=== PATIENT | female | born 1975 | race Two or more races ===

== ENCOUNTER → 2025-06-13 | Outpatient (CLI) | payer MEDICAID, SELFPAY ==
--- NOTE | 2025-06-13 16:59 | XR_ITS ---
Examination: Bilateral hands, 6 views. Technique: AP, Oblique, Lateral each hand total 6 views Date and time of exam: June 13, 2025, 17 0404 hours INDICATIONS: Bilateral hand pain for years. FINDINGS: Moderate extra-articular bone demineralization. No fracture or dislocation involving either hand. No erosive or other significant arthritic change involving either hand No foreign bodies Impression: No erosive or other significant arthritic change involving either hand
--- NOTE | 2025-06-13 16:59 | XR_ITS ---
EXAMINATION: Bilateral wrist 6 views TECHNIQUE: AP oblique lateral Atreus total 6 views Date and time: June 13, 2025, 1709 hours INDICATIONS: Bilateral wrist pain for years. FINDINGS: Moderate osteopenia. No fracture or dislocation involving either wrist. No erosive or other significant arthritic change involving either wrist IMPRESSION: No erosive or other significant arthritic change involving either wrist.
--- NOTE | 2025-06-13 16:59 | XR_ITS ---
Exam: elbow bilateral, 6 views Technique: Elbow AP, oblique ideomotor 6 views Exam date and time: June 13 025, 1715 hours INDICATIONS: Bilateral elbow pain months. FINDINGS: Mild bilateral elbow osteoarthritis Tiny bilateral posterior bony olecranon spurs No elbow effusions No fractures IMPRESSION: Mild bilateral elbow osteoarthritis
== END | disposition home or self-care (01) ==
PROVIDERS: PCP Nurse Practitioner Family
DX: M79.642 Pain in left hand (principal); M79.641 Pain in right hand; M25.532 Pain in left wrist; M25.531 Pain in right wrist; M19.022 Primary osteoarthritis, left elbow; M19.021 Primary osteoarthritis, right elbow
CPT/HCPCS: 73080; 73110; 73130

== ENCOUNTER 2025-08-14 11:15 | Day surgery (SDC) | payer MEDICAID, SELFPAY ==
--- NOTE | 2025-08-13 06:00 | EKG_ITS ---
[facility] Test Date: 2025-08-13 Pat Name: BREE FERRIS Department: Room: - Gender: Female [employer] Sales Manager: JONNY : 1975 Requested By: Cosmo Oates Order Number: [id number] Reading MD: Cosmo Oates Measurements Intervals [place] Rate: 61 P: 54 UT: 154 QRS: 56 QRSD: 85 T: 16 QT: 402 QTc: 407 Interpretive Statements SINUS RHYTHM No previous ECG available for comparison /[id number]/[id number]
[2025-08-13 08:19] VITALS: BMI 37.1
[2025-08-13 09:51] LABS: INR 1.0 (0.9-1.3); Partial Thromboplastin Time 27.4 Seconds (22.0-36.0); Prothrombin Time 10.2 Seconds (9.0-12.2)
[2025-08-13 09:53] LABS: Basophils # (Auto) 0.1 Thou/mm3 (0.0-0.2); Basophils % (Auto) 1 % (0-2.5); Eosinophils # (Auto) 0.1 Thou/mm3 (0.0-0.5); Eosinophils % (Auto) 1 % (0-10); Hematocrit 40.3 % (36.0-46.0); Hemoglobin 12.2 g/dL (12.0-16.0); Immature Granulocytes Auto 0.03 Thou/mm3 (0.00-0.00); Lymphocytes # (Auto) 2.5 Thou/mm3 (1.0-4.8); Lymphocytes % (Auto) 29 % (10-50); Mean Corpuscular HGB Conc 30.3 g/dl (31.0-37.0); Mean Corpuscular Hemoglobin 24.8 pg (25.0-35.0); Mean Corpuscular Volume 82 fL (80-100); Monocytes # (Auto) 0.7 Thou/mm3 (0.0-0.8); Monocytes % (Auto) 8 % (0-12); Neutrophils # (Auto) 5.4 Thou/mm3 (1.8-7.7); Neutrophils % (Auto) 62 % (37-80); Nucleated Red Blood Cell # 0.00 Thou/mm3 (0.00-0.00); Nucleated Red Blood Cell % 0 /100 WBC (0); Platelet Count 288 Thou/mm3 (140-440); RDW Standard Deviation 44.1 fL (36.4-46.3); Red Blood Count 4.92 Miln/mm3 (4.00-5.20); White Blood Count 8.7 Thou/mm3 (3.6-11.0)
[2025-08-13 10:00] LABS: Alanine Aminotransferase 11 U/L (10-49); Albumin, Serum 4.3 gm/dL (3.5-5.0); Albumin/Globulin Ratio 1.4 (1.2-2.2); Alkaline Phosphatase 101 U/L (46-116); Anion Gap 7 (7-16); Aspartate Amino Transferase < 10 U/L (0-34); BUN/Creatinine Ratio 15 Ratio (12-20); Bilirubin,Total 0.5 mg/dL (0.3-1.2); Blood Urea Nitrogen 9 mg/dL (9-23); Calcium 9.3 mg/dL (8.3-10.6); Calcium (Corrected) 9.3 mg/dL (8.5-10.1); Carbon Dioxide 30.9 mMol/L (20.0-31.0); Chloride 102 mMol/L (98-107); Creatinine (Component) 0.6 mg/dL (0.6-1.3); Estimated Creatinine Clearance 119.8 mL/min (>60); Globulin 3.0 gm/dL (2.3-3.5); Glucose 103 mg/dL (74-106); Osmolality,Calculated 278 (275-295); Potassium 4.7 mMol/L (3.4-5.1); Sodium 140 mMol/L (136-145); Total Protein 7.3 gm/dL (5.7-8.2); eGFR > 60 See Note
[2025-08-13 10:25] LABS: HCG,Qualitative Serum Negative
[2025-08-14] VITALS (11 sets, daily range): BP systolic 122–156; BP diastolic 70–101; PULSE 57–72; RESP 12–16; TEMP 36.3–36.9; O2SAT 95–100; BMI 36.8
[2025-08-14] MEDS: RINGERS LACTATED 1000 ML 1,000 ML 20 ML IV (12:00)
--- NOTE | 2025-08-14 13:08 | PD.SUROPNT ---
Date of Procedure 08/14/25 Pre Op Diagnosis Symptomatic varicose veins left lower extremity Post Op Diagnosis Same as pre-op diagnosis Procedure Wi Findings All marked veins were either disrupted or removed Procedure Description With the patient standing in the preop area or varicose veins in the left leg to be removed were carefully marked with a sharpie pen. The patient was then brought to the operating room and general anesthesia was induced. A timeout was performed. The operation was performed by making a small skin sharlene with a #11 blade and all of the marked areas then bluntly enlarging the incision with a mosquito clamp and sequentially excising or disrupting the veins. After hemostasis was obtained in all the incisions the leg was cleaned and dried and the incisions were reapproximated with Steri-Strips. Layered sterile compressive bandaging was then applied and the patient woke up from anesthesia was moved to recovery in stable condition there were 42 incisions made to remove the veins Anesthesia other (Laryngeal mask anesthesia) Pathology / specimen Other (Left leg varicose veins) Estimated Blood Loss 100 Disposition PACU Surgeon Junior Gaston MD Surgical Staff Operation Date: 08/14/25 13:45 Case Staff Anesthesiologist: Harley Lucas RN First Assistant: Maki Castellanos
--- NOTE | 2025-08-14 13:35 | SUR.PHASEI ---
6233 Patient arrived to recovery resting comfortably in [facility], drowsy and responding to verbal prompting, on oxygen 4L via oxy mask-oral airway removed upon arrival, breathing unlabored, vital signs stable, denies pain and nausea, dressing intact to left leg; steri-strips, abd, kerlix roll, cooper wraps, no bleeding noted, bilateral dorsalis pedis pulses present when palpated, report received from Van RICHARDSON and Dr. Lucas
[2025-08-14] MEDS: HYDROmorphone INJ 2 MG/ML VIAL 0.4 MG IVP ×3 (13:50→14:09)
--- NOTE | 2025-08-14 14:10 | SUR.PHASEI ---
1410 Verbal order read-back received from Dr. Lucas for pain, [place] 5/325 oral tab x1 dose, will place order in EMR and administer per anesthesia order
[2025-08-14] MEDS: HYDROcodone/APAP 5/325 TABLET 1 TAB PO (14:17)
--- NOTE | 2025-08-14 15:55 | SUR.PHASEII ---
1555 patient meets discharge criteria from recovery, awake and alert, breathing unlabored, vital signs stable, denies pain and nausea, dressing intact; no bleeding noted, assisted with dressing into her clothing by her , discharge instructions given to patient and patients with the assistance of the telephone field crew chief Raysa ID# [id number], patient signed discharge instructions. Patient given all her belongings prior to discharge, transported via wheelchair and left in a private vehicle.
== END 2025-08-14 15:55 | disposition home or self-care (01) ==
PROVIDERS: Anesthesiology; PCP Nurse Practitioner Family; Referring Provider Surgery Vascular Surgery; Visit Provider Surgery Vascular Surgery
PROC: (CPT 37785; principal; 2025-08-14 13:30)
DX: I83.812 Varicose veins of left lower extremity with pain (principal); Z01.810 Encounter for preprocedural cardiovascular examination
CPT/HCPCS: 37766; 36415; 80053; 84703; 85025; 85610; 85730; 93005; A4649; J0131; J0690; J1100; J1171; J1885; J2250; J2405; J2704; J3010; J7120; A9270

== ENCOUNTER 2025-09-03 09:00 | Outpatient (RCR) | payer MEDICAID, SELFPAY ==
--- NOTE | 2025-08-29 14:28 | PTNOTE_ITS ---
PT OP Initial Eval Patient Information Outpatient Physical Therapy Treatment Date: 08/29/25 Visit Reasons: NUMBNESS IN BOTH HANDS Medical Diagnosis: R20.2 Treatment Dx #1: Left Hand Pain Treatment Dx #2: Right Hand Pain Smoking Status Smoking Status: Never smoker Initial Assessment Subjective: Pt is a 50 y/o male reports of numbness and pain ~ 2 years ago. Pt mentioned nerve conduction test confirmed carpal tunnel syndrome. Pt has received shots in the hands and night splint which does not help. Pt has limitation with gripping, lifting, chores, self care, cooking, cleaning, and performing recreational activities. Objective: Bilateral Wrist AROM: all motions are WFL Bilateral Wrist MMTs: grossly 3/5 Garden Labourer Strength L:25 lbs R: 8 lbs Jose Pinch L: 4 lbs R: 3 lbs Special Test (+) phalen's Assessment: Pt demonstrate bilateral hand pain with weakness consistent carpal tunnel syndrome leading to difficulty with ADLs. Pt will attempt physical therapy if pain persist Pt will be refer back to provider for further consultation. Short Term and Long-Term Goals 1) Increase bilateral air twist operator grenth to 50 lbs in 6 wks to be able to perform gripping activities 2) Decrease hand pain to 2/10 in 6 wks to be able to perform chores 3) Increase bilateral wrist MMTs grossly to 4-/5 in 6 wks to be able to perform recreational activities 4) Indep with HEP Treatment Plan 1) Manual Therapy 2) Therapeutic Activities 3) Therapeutic Exercises 4) Modalities (ice, heat) Frequency and Duration: 2 x wk for 6 wks Certification Dates: 08/29/25 to 11/27/25 Procedure Charges OP PT Eval Mod Complex 30 minutes: Yes
--- NOTE | 2025-09-03 11:01 | PT.ODAYNRPT ---
PT Outpatient Daily Note OP Daily Note Outpatient Physical Therapy Treatment Date: 09/03/25 Visit Reasons: NUMBNESS IN BOTH HANDS Subjective: Pt's hands feel about the same. No change in overall symptoms or pain. Objective: Please see flow chart for list of ther ex performed Assessment: cues to keep elbow straight with wrist flexors stretch. Post heat helped with hand pain Plan: Continue with PT Length of Time (minutes) of Treatment: 30 Minutes Procedure Charges Therapeutic Exercise 30 minutes: Yes
== END 2025-09-03 23:59 | disposition home or self-care (01) ==
LOC: CPTX 09:00
PROVIDERS: PCP Nurse Practitioner Family
DX: M79.642 Pain in left hand (principal); M79.641 Pain in right hand; R20.2 Paresthesia of skin; R20.0 Anesthesia of skin
CPT/HCPCS: 97110; 97162